=== PATIENT | female | born 1960 | race Caucasian/White ===

== ENCOUNTER 2016-04-13 13:43 | Inpatient (IN) | payer OTHER ==
[~2016-04-13 13:43] MED LIST: ALDACTONE50 M1 PO; AMOXICILLIN; AUGMENTIN875 MG PO; BUPROPION HCL150 M3 PO; BUPROPION XL150 M1 PO; CRESTOR; CRESTOR5 M1 PO; CRESTOR5 MG PO; CRESTOR5 MG/TAB PO; HUMALOG; IBUPROFEN600 M1 PO; INSULIN PUMP; INVOKANA100 MG PO; LEVOTHYROXINE88 MC2 PO; MEDROL4 MG/DOSE- PO; MYSOLINE50 MG PO; NEXIUM40 M1 PO; NEXIUM40 MG PO; NORCO 5-325 TA1 EACH PO; OSPHENA60 MG PO; PHENERGAN W/CO120 M1 PO; PRIMIDONE; PRIMIDONE50 M1 PO; PRISTIQ; PRISTIQ ER100 MG PO; PRISTIQ50 MG PO; PROPRANOLOL HCL PO; PROPRANOLOL HCL60 M2 PO; TYLENOL W/CODEI1 TAB PO; TYLENOL650 MG PO; WELLBUTRIN XL300 M1 PO
[2016-04-13] MEDS ORDERED: PROTONIX40 M2 PO (14:18)
[2016-04-13 15:05] LABS: BASO % 0.2 % (0-2); EOS % 0.7 % (0-7); EOSINOPHIL ABSOLUTE COUNT 0.1 tho/cmm (0.0-0.7); HCT-HEMATOCRIT 49.2 % (34.0-49.0); HGB-HEMOGLOBIN 16.1 gm/dl (12.0-15.5); IMMATURE GRANULOCYTES ABSOLUTE 0.05 tho/cmm (0-0.03); IMMATURE GRANULOCYTES PERCENT 0.3 % (0-0.3); LYMPH % 5.9 % (20-45); MCH (MEAN CORPUSCULAR HGB) 27.3 pg (28.0-32.0); MCHC MEAN CORPUSCULAR HGB CONC 32.7 % (32.0-36.0); MCV (MEAN CELL VOLUME) 83.5 fl (82.0-96.0); MEAN PLATELET VOLUME 10.3 cmc (9.4-12.4); MONO % 8.6 % (0-12); MONOCYTE ABSOLUTE COUNT 1.4 tho/cmm (0.0-1.2); NEUTROPHIL ABSOLUTE COUNT 13.5 tho/cmm (1.6-8.0); NEUTROPHIL-AUTOMATED 13.5 tho/cmm (1.6-8.0); NEUTROPHILS % 84.3 % (40-80); PLATELET COUNT 274 tho/cmm (150-450); RED BLOOD COUNT 5.89 mil/cmm (4.00-5.20); RED CELL DISTRIBUTION WIDTH 13.6 % (12.4-16.4)
[2016-04-13 15:23] LABS: ALBUMIN 3.7 g/dl (3.5-5.0); ALKALINE PHOSPHATASE 134 U/L (33-138); ALT/SGPT 23 U/L (12-78); ANION GAP 10 mmol/L (0-20); AST/SGOT 21 U/L (10-40); BILIRUBIN,TOTAL 0.3 mg/dl (0-1.5); BLOOD UREA NITROGEN 8 mg/dl (6-24); C-REACTIVE PROTEIN 1.5 mg/dl (0-0.9); CALCIUM 8.6 mg/dl (8.5-10.5); CARBON DIOXIDE-VENOUS 27 mmol/L (22-32); CHLORIDE 107 mmol/l (96-110); CREATININE 0.88 mg/dl (0.50-1.10); GLUCOSE 206 mg/dL (70-110); LIPASE 47 U/L (73-393); POTASSIUM 4.9 mmol/L (3.7-5.1); SODIUM 139 mmol/L (135-145); eGFR VALUE FOR BLACK >60 mL/Min
[2016-04-13 15:48] LABS: URINE APPEARANCE CLEAR; URINE BILIRUBIN SMALL (NEG); URINE BLOOD NEGATIVE (NEG); URINE COLOR DARK YELLOW; URINE GLUCOSE (UA) LARGE (NEG); URINE KETONE MODERATE (NEG); URINE LEUKOCYTE ESTERASE NEGATIVE (NEG); URINE NITRITE NEGATIVE (NEG); URINE PROTEIN NEGATIVE (NEG); URINE SPECIFIC GRAVITY 1.015 (1.003-1.030)
[2016-04-13 15:53] LABS: URINE RBC 0 /[HPF] (0-5); URINE WBC 0 /[HPF] (0-5)
[2016-04-14 05:42] LABS: BASO % 0.2 % (0-2); EOS % 1.2 % (0-7); EOSINOPHIL ABSOLUTE COUNT 0.1 tho/cmm (0.0-0.7); HCT-HEMATOCRIT 40.4 % (34.0-49.0); HGB-HEMOGLOBIN 13.1 gm/dl (12.0-15.5); IMMATURE GRANULOCYTES ABSOLUTE 0.01 tho/cmm (0-0.03); IMMATURE GRANULOCYTES PERCENT 0.1 % (0-0.3); LYMPH % 22.3 % (20-45); LYMPH ABSOLUTE COUNT 2.2 tho/cmm (0.8-4.5); MCH (MEAN CORPUSCULAR HGB) 27.2 pg (28.0-32.0); MCHC MEAN CORPUSCULAR HGB CONC 32.4 % (32.0-36.0); MCV (MEAN CELL VOLUME) 83.8 fl (82.0-96.0); MEAN PLATELET VOLUME 10.2 cmc (9.4-12.4); MONO % 10.7 % (0-12); NEUTROPHIL ABSOLUTE COUNT 6.3 tho/cmm (1.6-8.0); NEUTROPHIL-AUTOMATED 6.3 tho/cmm (1.6-8.0); NEUTROPHILS % 65.5 % (40-80); PLATELET COUNT 232 tho/cmm (150-450); RED BLOOD COUNT 4.82 mil/cmm (4.00-5.20); RED CELL DISTRIBUTION WIDTH 13.9 % (12.4-16.4); WHITE BLOOD COUNT 9.7 tho/cmm (4.0-10.0)
[2016-04-14 06:07] LABS: ALBUMIN 2.9 g/dl (3.5-5.0); ALKALINE PHOSPHATASE 90 U/L (33-138); ALT/SGPT 18 U/L (12-78); ANION GAP 8 mmol/L (0-20); AST/SGOT 15 U/L (10-40); BILIRUBIN,TOTAL 0.3 mg/dl (0-1.5); BLOOD UREA NITROGEN 5 mg/dl (6-24); CARBON DIOXIDE-VENOUS 28 mmol/L (22-32); CHLORIDE 109 mmol/l (96-110); CREATININE 0.69 mg/dl (0.50-1.10); GLUCOSE 108 mg/dL (70-110); MAGNESIUM 2.1 mg/dl (1.3-2.6); SODIUM 141 mmol/L (135-145); eGFR VALUE FOR BLACK >60 mL/Min
[2016-04-14 06:08] LABS: POTASSIUM 3.7 mmol/L (3.7-5.1)
== END 2016-04-17 12:45 | DRG 395 ==
LOC: EDMED 13:43 → EMR2 17:41 → 5WE 18:52
PROVIDERS: Emergency Medicine; Internal Medicine Cardiovascular Disease; ADMIT Hospitalist
PROC: 0DBL8ZX Excision of Transverse Colon, Via Natural or Artificial Opening Endoscopic, Diagnostic (ICD-10-PCS; principal; 2016-04-17)
DX: K55.9 Vascular disorder of intestine, unspecified (principal); K31.84 Gastroparesis; E10.43 Type 1 diabetes mellitus with diabetic autonomic (poly)neuropathy; E03.9 Hypothyroidism, unspecified; E86.0 Dehydration; K21.9 Gastro-esophageal reflux disease without esophagitis; M19.90 Unspecified osteoarthritis, unspecified site; E66.09 Other obesity due to excess calories; F41.8 Other specified anxiety disorders; Z68.31 Body mass index [BMI] 31.0-31.9, adult
CPT/HCPCS: G0500; J0744; J2250; J2270; J2405; J3010; J7030; Q9967